=== PATIENT | male | born 1990 | race African-American/Black ===

== ENCOUNTER 2017-11-13 14:47 | Emergency (ER) | payer OTHER ==
[2017-11-13 15:17] VITALS: BP 145/86; PULSE 95; TEMP 98.4; BMI 26.4
--- NOTE | 2017-11-13 16:18 | PDOC ---
History of Present Illness - General Chief Complaint: Psychiatric Stated Complaint: CHEST PAIN Time Seen by Provider: 11/13/17 15:01 - History of Present Illness Initial Comments: 27yo M with PMH of asthma presenting with chest pain, numbness and tingling, and vision changes. He was sitting in [employer] when his pain started and so he came to the ED via ambulance. While the pain was 7/10 at its highest, he currently endorses 1-2/10 pain. Pain is not reproducible with breathing or palpation. Denies fever, chills, nausea, vomiting, or diaphoresis. He had a similar episode on for which he was seen at [facility]. The patient reports that they did performed a workup and diagnosed him with panic attacks. Patient last had an ECHO two or three months ago for unknown reason and he reports that it did not reveal any abnormal pathology. 11/13/17 16:13 Past History - Past Medical History Allergies/Adverse Reactions: Allergies Allergy/AdvReac Type Severity Reaction Status Date / Time No Known Allergies Allergy Verified 11/13/17 15:14 Home Medications: Ambulatory Orders Albuterol Sulfate Inhaler - [Ventolin Hfa Inhaler -] 1 - 2 inh PO QID 11/13/17 Asthma: Yes COPD: No Other medical history: panic attack 11/10/17 - Suicide/Smoking/Psychosocial Hx Smoking History: Unknown if ever smoked Review of Systems - Review of Systems Comments:: Constitutional: no fever, no chills HEENT: no throat pain, no hemoptysis Cardiovascular: +chest pain, no palpitations Respiratory: no cough, no shortness of breath Gastrointestinal: no abdominal pain, no nausea, no vomiting Genitourinary: no dysuria, no frequency Musculoskeletal: no myalgia, no arthralgia Skin: no rash, no itching Neurologic: +numbness/tingling in arms, no headache, no dizziness *Physical Exam - Vital Signs Last Vital Signs Temp Pulse Resp BP Pulse Ox 98.4 F 95 H 20 145/86 98 11/13/17 14:50 11/13/17 14:50 11/13/17 14:50 11/13/17 14:50 11/13/17 15:00 - Physical Exam Comments: General: Awake, alert, and fully oriented, in no acute distress Head: no signs of trauma Eyes: PERRL, EOMI, sclera anicteric ENT: moist mucus membranes Neck: Normal ROM, supple, no lymphadenopathy Lungs: Lungs clear, Normal breath sounds Cardio: Regular rhythm, S1 and S2 present, no murmurs, rubs, or gallops Abdomen: Soft, nontender, normal bowel sounds. No guarding, no rebound, no masses Extremities: Normal range of motion, No clubbing or cyanosis. No cords or tenderness SKIN: Warm, Dry, normal turgor, no rashes or lesions noted Neurologic: Cranial nerves II through XII grossly intact. Normal speech ED Treatment Course - LABORATORY CBC & Chemistry Diagram: 11/13/17 16:45 11/13/17 16:45 Medical Decision Making - Medical Decision Making Patient complaining of chest pain and numbness and tingling. Similar episode on for which he was seen at [facility]. EKG is unremarkable. Tpn negative. Do not suspect acute heart or other pathology at this time. Creatinine is 1.4, borderline. Will discharge patient and instruct to follow up with PCP regarding symptoms and creatinine. Patient is amenable to plan. 11/13/17 17:56 *DC/Admit/Observation/Transfer Diagnosis at time of Disposition: Atypical chest pain - Discharge Dispostion Disposition: HOME Condition at time of disposition: Stable - Referrals Referrals: Jennifer Lopez MD [Primary Care Provider] - - Patient Instructions Printed Discharge Instructions: DI for Atypical Chest Pain Additional Instructions: We saw you in the emergency department for chest pain, numbness and tingling. We performed an EKG and blood work which did not show heart abnormalities. You need to see your primary care provider, Dr. Lopez, who can further workup your symptoms. Please call and make an appointment in the next 1-2 days. We also found that your creatinine level, a measure of kidney function, was 1.4 which was borderline high - Post Discharge Activity
[2017-11-13] MEDS ORDERED: ASPIRIN 81 MG CHEWABLE TABLETS PO ONE (16:34)
[2017-11-13] MEDS ORDERED: ASPIRIN 81 MG CHEWABLE TABLETS ONE (16:39)
[2017-11-13 16:54] LABS: BASO % 0.6 % (0-2.0); EOS % 0.4 % (0-4.5); HEMATOCRIT 40.4 % (35.4-49); LYMPH % 23.3 % (8-40); MCH 29.7 pg (25.7-33.7); MCHC 34.8 g/dl (32.0-35.9); MEAN CELL VOLUME 85.5 fl (80-96); MONO % 5.8 % (3.8-10.2); NEUT % 69.9 % (42.8-82.8); PLATELET COUNT 276 K/MM3 (134-434); RBC 4.72 M/mm3 (4.00-5.60); RDW 13.4 % (11.9-15.9); WHITE BLOOD COUNT 8.9 K/mm3 (4.0-10.0)
[2017-11-13 17:12] LABS: ALBUMIN 4.3 g/dl (3.4-5.0); ANION GAP 10 (8-16); BILIRUBIN,TOTAL 0.8 mg/dL (0.2-1.0); BLOOD UREA NITROGEN 13 mg/dL (7-18); CALCIUM 9.7 mg/dL (8.5-10.1); CHLORIDE 104 mmol/L (98-107); CO2 26 mmol/L (21-32); CREATININE 1.4 mg/dL (0.7-1.3); GLUCOSE,RANDOM 100 mg/dL (74-106); POTASSIUM 3.9 mmol/L (3.5-5.1); SGOT/AST 16 U/L (15-37); SGPT/ALT 35 U/L (12-78); SODIUM 140 mmol/L (136-145); TOT PROT 7.9 g/dl (6.4-8.2)
[2017-11-13 17:14] LABS: ALK PHOS 62 U/L (45-117)
--- NOTE | 2017-11-13 17:21 | PDOC ---
Attending Attestation - HPI HPI: 11/13/17 17:28 The patient is a 27 year old male, with a significant PMH of asthma, who presents to the emergency department complaining of chest pain which began approximately today around 1:30 pm. The patient states he was at [employer] today when he felt diffuse sharp chest pain accompanied with chest tightness, vision changes, numbness and tingling. The patient reports a severity of 7/10 at the time of the incident but now pain is 2/10. Patient states he has had a similar episode on for which he went to [facility] and was diagnosed with panic attack. Patient also mentions he had an ECHO done in July at a clinical affiliated with [facility] for unknown reasons and no abnormal pathology was revealed. The patient denies headache and dizziness. Denies fever, chills, nausea, vomit, diarrhea and constipation. Denies dysuria, frequency, urgency and hematuria. Allergies: NKDA Past surgical history: None reported Family History: Mother has had a valvular replacement Social history: None reported PCP: Hemel. Rodriguez - Physicial Exam PE: 11/13/17 17:31 Well developed, well nourished. Awake and alert. No acute distress. HEENT: Normocephalic, atraumatic. PERRLA, EOMI. No conjunctival pallor. Sclera are non- icteric. Moist mucous membranes. Oropharynx is clear. NECK: Supple. Full ROM. No JVD. Carotid pulses 2+ and symmetric, without bruits. No thyromegaly. No lymphadenopathy. CARDIOVASCULAR: Regular rate and rhythm. No murmurs, rubs, or gallops. Distal pulses are 2+ and symmetric. PULMONARY: No evidence of respiratory distress. Lungs clear to auscultation bilaterally. No wheezing, rales or rhonchi. ABDOMINAL: Soft. Non-tender. Non-distended. No rebound or guarding. No organomegaly. Normoactive bowel sounds. MUSCULOSKELETAL Normal range of motion at all joints. No bony deformities or tenderness. No CVA tenderness. EXTREMITIES: No cyanosis. No clubbing. No edema. No calf tenderness. SKIN: Warm and dry. Normal capillary refill. No rashes. No jaundice. NEUROLOGICAL: Alert, awake, appropriate. Cranial nerves 2-12 intact. No deficits to light touch and temperature in face, upper extremities and lower extremities. No motor deficits in the in face, upper extremities and lower extremities. Normoreflexic in the upper and lower extremities. Normal speech. Toes are down- going bilaterally. PSYCHIATRIC: Cooperative. Good eye contact. Appropriate mood and affect. - Medical Decision Making 11/13/17 17:31 Documentation prepared by Gaudencio Urias, acting as medical sales for Jacque Kinney MD. 11/13/17 17:46 116//72 BP 82 Heart rate "-" Troponin CR+1.4 discussed with patient <Gaudencio Urias - Last Filed: 11/13/17 17:46> - Resident Resident Name: Beckie Georges - ED Attending Attestation I have performed the following: I have examined & evaluated the patient, The case was reviewed & discussed with the resident, I agree w/resident's findings & plan, Exceptions are as noted - Medical Decision Making 11/13/17 18:22 imp atypical chest pain/anxiety 11/13/17 21:53 This patient has had several ER visits in the last 4 months for atypical chest pain. He was seen at outpatient clinic associated with [facility] about 3 months ago and states that he had an echo done at that time did not show any significant findings. He also seen at [facility] about 4 days ago for the same symptoms that had negative workup. Tonight his troponin was normal and he was discharged home <Jacque Kinney - Last Filed: 11/13/17 21:55>
--- NOTE | 2017-11-14 16:07 | EKG ---
Test Reason : Blood Pressure : / mmHG Vent. Rate : 078 BPM Atrial Rate : 078 BPM P-R Int : 150 ms QRS Dur : 090 ms QT Int : 356 ms P-R-T Axes : 063 043 018 degrees QTc Int : 405 ms NORMAL SINUS RHYTHM NONSPECIFIC ST ABNORMALITY ABNORMAL ECG NO PREVIOUS ECGS AVAILABLE Confirmed by FELICIANO CARO MD ([id number]) on 11/14/2017 4:06:56 PM Referred By: Confirmed By:FELICIANO CARO MD
== END 2017-11-13 17:30 | disposition home or self-care (01) ==
LOC: JER 14:47
DX: R07.89 Other chest pain (principal); Z87.09 Personal history of other diseases of the respiratory system
CPT/HCPCS: 36415; 80053; 84484; 85025; 93005; 93010; 99282-25